=== PATIENT | male | born 1945 | race Caucasian/White ===

== ENCOUNTER 2018-12-18 12:49 | Inpatient (IN) | payer OTHER ==
[~2018-12-18] VITALS: Ht 243.8 cm; Wt 5.0 kg
[2018-12-18] MEDS ORDERED: NOVOLIN 70100 UNIT/2 (13:30)
[2018-12-24] MEDS ORDERED: TRAM1TAB98 PO (11:39)
[2018-12-24] MEDS ORDERED: PANTOPRAZOLE SO40 MG PO (11:40)
[2018-12-24] MEDS ORDERED: Intestinex CAP PO (11:40)
== END 2018-12-24 12:24 | disposition home or self-care (01) | DRG 329 ==
LOC: ER 12:49 → SURH 16:39
PROVIDERS: ADMIT Surgery
PROC: 30233N1 Transfusion of Nonautologous Red Blood Cells into Peripheral Vein, Percutaneous Approach (ICD-10-PCS; 2018-12-19)
PROC: 3E0H8KZ Introduction of Other Diagnostic Substance into Lower GI, Via Natural or Artificial Opening Endoscopic (ICD-10-PCS; 2018-12-20)
PROC: 07TB4ZZ Resection of Mesenteric Lymphatic, Percutaneous Endoscopic Approach (ICD-10-PCS; 2018-12-21)
PROC: 0DTF4ZZ Resection of Right Large Intestine, Percutaneous Endoscopic Approach (ICD-10-PCS; principal; 2018-12-21 17:30)
DX: D12.3 Benign neoplasm of transverse colon (principal); K57.31 Diverticulosis of large intestine without perforation or abscess with bleeding; D50.0 Iron deficiency anemia secondary to blood loss (chronic); I10 Essential (primary) hypertension; E11.9 Type 2 diabetes mellitus without complications; Z79.4 Long term (current) use of insulin

== ENCOUNTER → 2020-05-30 08:00 | Outpatient (CLI) | payer OTHER ==
[~2020-05-30 08:00] MED LIST: Intestinex CAP PO; NOVOLIN 70100 UNIT/2; PANTOPRAZOLE SO40 MG PO; TRAM1TAB98 PO
== END | disposition home or self-care (01) ==
LOC: LAB 08:00 → ADM 12:15 → EDSTATUS 06-06 12:15 → AMB-ENDOS 06-06 12:15
PROVIDERS: ATTEND Surgery
DX: C18.3 Malignant neoplasm of hepatic flexure (principal); K92.1 Melena; R19.4 Change in bowel habit; Z20.828 Contact with and (suspected) exposure to other viral communicable diseases